=== PATIENT | male | born 1970 | race Caucasian/White ===

== ENCOUNTER 2018-11-17 23:09 | Emergency (ER) | payer SELFPAY ==
--- NOTE | 2018-11-18 01:04 | ER Document Report ---
ED General - General Chief Complaint: Abscess Stated Complaint: Back abscess Time Seen by Provider: 11/18/18 00:15 Notes: Patient is a 48-year-old male without chronic medical problems who presents complaining of a pain with an area of swelling on his left upper mid back. Describes areas having a throbbing, aching, constant pain. Worsened by touching the area. Nothing improves the pain. States that is been present for approximately 1 month and has been worsening over that period of time. Denies a history of similar symptoms in the past. Has not seen his general doctor regarding today's concerns. Denies any fever or constitutional symptoms. TRAVEL OUTSIDE OF THE [place] IN LAST 30 DAYS: No - Related Data Allergies/Adverse Reactions: No Known Allergies Allergy (Unverified 11/17/18 23:21) Past Medical History - General Information source: Patient - Social History Smoking Status: Current Every Day Smoker Frequency of alcohol use: Occasional Drug Abuse: None Family History: Reviewed & Not Pertinent Review of Systems - Review of Systems Notes: Constitutional: Negative for fever. HENT: Negative for sore throat. Eyes: Negative for visual changes. Cardiovascular: Negative for chest pain. Respiratory: Negative for shortness of breath. Gastrointestinal: Negative for abdominal pain, vomiting or diarrhea. Genitourinary: Negative for dysuria. Musculoskeletal: Negative for back pain. Skin: Positive for upper back abscess Neurological: Negative for headaches, weakness or numbness. 10 point ROS negative except as marked above and in HPI. Physical Exam - Vital signs Interpretation: Normal Notes: PHYSICAL EXAMINATION: GENERAL: Well-appearing, well-nourished and in no acute distress. HEAD: Atraumatic, normocephalic. EYES: Pupils equal round and reactive to light, extraocular movements intact, sclera anicteric, conjunctiva are normal. ENT: nares patent, oropharynx clear without exudates. Moist mucous membranes. NECK: Normal range of motion, supple without lymphadenopathy LUNGS: Breath sounds clear to auscultation bilaterally and equal. No wheezes rales or rhonchi. HEART: Regular rate and rhythm without murmurs ABDOMEN: Soft, nontender, normoactive bowel sounds. No guarding, no rebound. No masses appreciated. EXTREMITIES: Normal range of motion, no pitting or edema. No cyanosis. NEUROLOGICAL: No focal neurological deficits. Moves all extremities spontaneously and on command. PSYCH: Seems somewhat intoxicated otherwise pleasant on contact SKIN: Warm, Dry, normal turgor, there is a 2 x 2 centimeter abscess on the left upper mid back with mild surrounding erythema Course - Re-evaluation Re-evalutation: 11/18/18 01:04 Patient presents with an abscess on the right upper back. Patient is intoxicated, quite sleepy on my initial assessment but does wake up relatively easily. Apparently in triage the patient complained of having a "swollen body" but denies this complaint to me. I did nonetheless complete an assessment and there is no apparent edema in any extremity or over the abdomen. Patient's abscess was incised and drained without complication with expression of approximately 5 cc of purulent drainage. There is a mild surrounding area of cellulitis. The patient has been started on trimethoprim sulfamethoxazole 2 tabs twice daily for the next 7 days. Vitals otherwise within normal limits. No indication for labs or imaging. At this time will discharge with return precautions and follow-up recommendations. Verbal discharge instructions given a the bedside and opportunity for questions given. Medication warnings reviewed. Patient is in agreement with this plan and has verbalized understanding of return precautions and the need for primary care follow-up in the next 24-72 hours. Discharge - Discharge Clinical Impression: Abscess of back Condition: Good Disposition: HOME, SELF-CARE Additional Instructions: You were seen for an abscess that required drainage. Please clean this area with soap and water twice daily and apply a topical antibiotic. Dress the area after each cleaning. Please return if you develop fever, vomiting, the pain at the site worsens, you notice spreading redness from the area, or you have any other symptoms that are concerning to you. Prescriptions: Sulfamethoxazole/Trimethoprim [Bactrim Ds Tablet] 2 tab PO BID #28 tablet
[2018-11-18 01:34] VITALS: BP 154/76
== END 2018-11-18 01:32 | disposition home or self-care (01) ==
LOC: ER 23:09
DX: L02.212 Cutaneous abscess of back [any part, except buttock and flank] (principal); L03.312 Cellulitis of back [any part except buttock and flank]; F10.10 Alcohol abuse, uncomplicated; F17.200 Nicotine dependence, unspecified, uncomplicated
CPT/HCPCS: 99283

== ENCOUNTER 2019-02-24 04:56 | Emergency (ER) | payer SELFPAY ==
--- NOTE | 2019-02-24 05:51 | ER Document Report ---
ED General - General Chief Complaint: Flank Pain Stated Complaint: FLANK PAIN Time Seen by Provider: 02/24/19 05:30 Notes: She is a 49-year-old male who presents the emergency department with a complaint of left flank pain. He states that his symptoms started about 5 hours ago. His pain is in his left flank area and it does not radiate. He has had kidney stones before and states that it feels like his previous kidney stone. He has a past medical history of bladder cancer and his cuticular cancer, and has been treated for both of them. Patient denies any other past medical history. States he does not take any medications. Admits to sometimes taking pain medication from his "supplier." TRAVEL OUTSIDE OF THE [place] IN LAST 30 DAYS: No - Related Data Allergies/Adverse Reactions: No Known Allergies Allergy (Unverified 11/17/18 23:21) Past Medical History - General Information source: Patient - Social History Smoking Status: Unknown if Ever Smoked Family History: Reviewed & Not Pertinent Patient has suicidal ideation: No Patient has homicidal ideation: No Renal/ Medical History: Denies: Hx Peritoneal Dialysis Review of Systems - Review of Systems Notes: REVIEW OF SYSTEMS: CONSTITUTIONAL : Denies recent illness. Denies recent unintentional weight loss. Denies fever, chills, or sweats. EENT: Denies eye, ear, throat, or mouth pain, discharge, or symptoms. Denies nasal or sinus congestion. CARDIOVASCULAR: Denies chest pain. RESPIRATORY: Denies shortness of breath, cough, congestion, difficulty breathing, or wheezing. GASTROINTESTINAL: Denies nausea, vomiting, and diarrhea. Denies abdominal pain. Denies constipation. GENITOURINARY: Denies difficulty urinating, burning, blood in urine, urgency or frequency. MUSCULOSKELETAL: See HPI SKIN: Denies rash, itchiness, or lesions HEMATOLOGIC : Denies easy bruising or bleeding. LYMPHATIC: Denies swollen, painful, enlarged glands. NEUROLOGICAL: Denies no numbness or tingling denies weakness. Denies headache. Denies altered mental status. Denies alteration in speech. PSYCHIATRIC: Denies stress, anxiety, alteration in sleep patterns, or depression. All other systems reviewed and negative. Physical Exam - Vital signs Vitals: Temp Pulse Resp BP Pulse Ox 97.6 F 74 18 131/85 H 95 02/24/19 05:08 02/24/19 05:08 02/24/19 05:08 02/24/19 05:08 02/24/19 05:08 - Notes Notes: PHYSICAL EXAMINATION: GENERAL: Appears unkempt, thin, drowsy, no acute distress. HEAD: Normocephalic, atraumatic. EYES: PERRL, conjunctiva normal, all extraocular movements intact, sclera nonicteric ENT: Moist mucous membranes. NECK: Supple, no noticeable swelling, redness, rash. Normal range of motion. LUNGS: Equal breath sounds bilaterally and clear to auscultation. No wheezes rales or rhonchi. CARDIOVASCULAR: S1-S2, regular rate, regular rhythm. Radial pulses 2+, normal. ABDOMEN: Normoactive bowel sounds. Soft, nontender, no guarding, no rebound tenderness, and no masses palpated. EXTREMITIES: Normal strength and range of motion, no pitting or edema. No cyanosis. NEUROLOGICAL: Moves all extremities upon command. Strength 5/5 in all extremities. PSYCH: Normal mood, normal affect. SKIN: Warm, dry. No rash, lesions, ulcerations noted. Normal skin turgor. BACK : CVA tenderness noted to left flank. Course - Re-evaluation Re-evalutation: 02/24/19 05:15 Patient has CVA tenderness noted on physical exam. At this time, I will hold off on a CT of the abdomen and pelvis, as the patient does not have insurance. I do not want to put the patient in financial debt when he most likely has a renal stone. I will order basic labs and urinalysis. If the patient does have leukocytes on his urinalysis, he will be sent for a CT of the abdomen and pelvis. 02/24/19 07:56 Patient's physical exams and labs are consistent with a renal stone. Patient has had renal stones in the past. There are no leukocytes noted on patient's urinalysis, ruling out an infected kidney stone. I have a very low suspicion for an infected kidney stone. He will be started on Flomax and Toradol for his pain. He will not be sent home on narcotic pain medication, as he already abuses narcotics provided by a friend. He is in agreement with this plan. Verbal discharge instructions were given to the patient. They verbalized understanding. They are stable for discharge. - Vital Signs Vital signs: Temp Pulse Resp BP Pulse Ox 98.5 F 74 15 133/78 H 93 02/24/19 08:25 02/24/19 05:08 02/24/19 08:26 02/24/19 08:26 02/24/19 08:26 - Laboratory Result Diagrams: 02/24/19 05:06 02/24/19 05:06 Laboratory results interpreted by me: 02/24/19 02/24/19 02/24/19 05:06 05:06 05:55 RDW 14.1 H Seg Neutrophils % 88.6 H Lymphocytes % 7.0 L Glucose 181 H Urine Protein 100 H Urine Glucose (UA) 50 H Urine Ketones 80 H Urine Blood LARGE H Urine Urobilinogen 2.0 H Discharge - Discharge Clinical Impression: Left flank pain Condition: Stable Disposition: HOME, SELF-CARE Additional Instructions: Kidney Stone You are passing or have passed a kidney stone. These stones are usually due to increased calcium or uric acid concentrations in your urine. Stones within the kidney itself are not painful. The pain occurs as the stone leaves the kidney to pass down the long tube, called the ureter, leading to the bladder. If the stone is small, it will usually pass by itself. Most patients can pass the stone at home. You will usually receive medications for pain, nausea or vomiting, and sometimes a medication to assist in passing the kidney stone. However, if the pain is very severe or if vomiting prevents you from taking oral pain medications, you may need to return for further treatment. Drink three or four quarts of fluids per day. You will be given pain medication (if needed). Return if pain or vomiting become severe, if you develop a high fever, if you are unable to pass your urine, or if other unusual symptoms occur. Prescriptions: Ketorolac Tromethamine [Toradol 10 mg Tablet] 10 mg PO Q6HP PRN #20 tablet PRN Reason: Tamsulosin HCl [Flomax 0.4 mg Cap.sr] 0.4 mg PO DAILY #7 cap.sr.24h
[2019-02-24] MEDS ORDERED: NORMAL SALINE 1000 ML 1,000 ML IV ONE (06:00)
[2019-02-24 06:08] LABS: ABSOLUTE LYMPHOCYTES (AUTO) 0.6 10^3/uL (0.5-4.7); ABSOLUTE MONOCYTES (AUTO) 0.3 10^3/uL (0.1-1.4); ABSOLUTE NEUT (AUTO) 7.6 10^3/uL (1.7-8.2); BASOPHILS % (AUTO) 0.2 % (0-2); EOSINOPHILS % (AUTO) 0.2 % (0-6); HEMATOCRIT 43.7 % (37.9-51.0); HEMOGLOBIN 14.6 g/dL (13.5-17.0); MEAN CORPUSCULAR HEMOGLOBIN 30.3 pg (27.0-33.4); MEAN CORPUSCULAR HGB CONC 33.4 g/dL (32.0-36.0); MEAN CORPUSCULAR VOLUME 91 fl (80-97); PLATELET COUNT 233 10^3/uL (150-450); RED BLOOD COUNT 4.83 10^6/uL (4.35-5.55); RED CELL DISTRIBUTION WIDTH 14.1 % (11.5-14.0); SEGMENTED NEUTROPHILS % (AUTO) 88.6 % (42-78); TOTAL CELLS COUNTED % (AUTO) 100 %; WHITE BLOOD COUNT 8.6 10^3/uL (4.0-10.5)
[2019-02-24 06:38] LABS: ALANINE AMINOTRANSFERASE 25 U/L (21-72); ALBUMIN 3.9 g/dL (3.5-5.0); ALKALINE PHOSPHATASE 70 U/L (38-126); ANION GAP 11 (5-19); ASPARTATE AMINO TRANSFERASE 27 U/L (17-59); BILIRUBIN,DIRECT 0.3 mg/dL (0.0-0.4); BILIRUBIN,TOTAL 0.9 mg/dL (0.2-1.3); BLOOD UREA NITROGEN 17 mg/dL (7-20); CALCIUM 9.6 mg/dL (8.4-10.2); CARBON DIOXIDE 30 mmol/L (22-30); CHLORIDE 100 mmol/L (98-107); GLUCOSE 181 mg/dL (75-110); POTASSIUM 3.8 mmol/L (3.6-5.0); SODIUM 140.6 mmol/L (137-145)
[2019-02-24 06:48] LABS: APPEARANCE,URINE SLIGHTLY-CLOUDY; BILIRUBIN,URINE NEGATIVE (NEGATIVE); COLOR,URINE AMBER; GLUCOSE, URINE 50 mg/dL (NEGATIVE); KETONES,URINE 80 mg/dL (NEGATIVE); LEUKOCYTE ESTERASE,URINE NEGATIVE (NEGATIVE); NITRITE,URINE NEGATIVE (NEGATIVE); PROTEIN,URINE 100 mg/dL (NEGATIVE); URINE SPECIFIC GRAVITY 1.029
[2019-02-24 07:35] LABS: URINE BARBITURATES SCREEN NEGATIVE; URINE BENZODIAZEPINES SCREEN NEGATIVE; URINE COCAINE SCREEN NEGATIVE; URINE MARIJUANA (THC) SCREEN UNCONFIRMED POSITIVE; URINE METHADONE SCREEN NEGATIVE; URINE PHENCYCLIDINE SCREEN NEGATIVE
[2019-02-24] MEDS ORDERED: TAMSULOSIN HCL 0.4 MG CAP.SR.24H PO ONE (08:02)
[2019-02-24] MEDS ORDERED: ONDANSETRON ODT 4 MG TAB (6 TAB/ER DISP) PO PRN (08:04)
[2019-02-24 09:01] VITALS: BP 133/78
== END 2019-02-24 09:11 | disposition home or self-care (01) ==
LOC: ER 04:56
DX: R10.9 Unspecified abdominal pain (principal); Z79.899 Other long term (current) drug therapy
CPT/HCPCS: 99284; 96360; 96361; 36415; 85025; 80053; 81001; 80307; J7030

== ENCOUNTER 2020-05-20 14:19 | Emergency (ER) | payer SELFPAY ==
--- NOTE | 2020-05-20 15:19 | ER Document Report ---
ED Medical Screen (RME) - General Chief Complaint: Flank Pain Stated Complaint: LOW BACK PAIN/DIFFICULTY URINATING Time Seen by Provider: 05/20/20 15:15 Mode of Arrival: Medic Information source: Patient Notes: 50-year-old male presented to ED for bilateral flank pain since last night. He states he did take Percocet this morning he only had 2 left and is already taking them. He states he has not had any urine today. He has vomited more than 5 times today and cannot urinate EMS gave him Toradol 30. Patient is alert and oriented very cold. He states he is in a lot of pain. He states he took 2 Percocet this morning. He was brought in by EMS and said in the lobby to wait for triage. I have greeted and performed a rapid initial assessment of this patient. A comprehensive ED assessment and evaluation of the patient, analysis of test results and completion of medical decision making process will be conducted by an additional ED providers. TRAVEL OUTSIDE OF THE [place] IN LAST 30 DAYS: No - HPI Onset: Other - Has not urinated since last night Onset/Duration: Persistent, Worse Severity: Severe Pain Level: 5 Associated Symptoms: Nausea, Vomiting - 5, Other - Urinary retention Exacerbated by: Movement Relieved by: Denies - Related Data Allergies/Adverse Reactions: No Known Allergies Allergy (Unverified 11/17/18 23:21) Past Medical History Renal/ Medical History: Denies: Hx Peritoneal Dialysis Physical Exam - Vital signs Vitals: Temp Pulse Resp BP Pulse Ox 98.5 F 74 18 136/92 H 99 05/20/20 14:26 05/20/20 14:26 05/20/20 14:05/20/20 14:26 05/20/20 14:26 Course - Vital Signs Vital signs: Temp Pulse Resp BP Pulse Ox 98.5 F 74 18 136/92 H 99 05/20/20 14:26 05/20/20 14:26 05/20/20 14:05/20/20 14:05/20/20 14:26
[2020-05-20 15:47] LABS: ABSOLUTE MONOCYTES (AUTO) 0.4 10^3/uL (0.1-1.4); ABSOLUTE NEUT (AUTO) 9.1 10^3/uL (1.7-8.2); BASOPHILS % (AUTO) 0.4 % (0-2); EOSINOPHILS % (AUTO) 0.1 % (0-6); HEMATOCRIT 47.7 % (37.9-51.0); HEMOGLOBIN 16.2 g/dL (13.5-17.0); LYMPHOCYTES % (AUTO) 9.3 % (13-45); MEAN CORPUSCULAR HEMOGLOBIN 30.5 pg (27.0-33.4); MEAN CORPUSCULAR VOLUME 90 fl (80-97); MONOCYTES % (AUTO) 3.9 % (3-13); PLATELET COUNT 266 10^3/uL (150-450); RED BLOOD COUNT 5.31 10^6/uL (4.35-5.55); SEGMENTED NEUTROPHILS % (AUTO) 86.3 % (42-78); TOTAL CELLS COUNTED % (AUTO) 100 %; WHITE BLOOD COUNT 10.6 10^3/uL (4.0-10.5)
[2020-05-20] MEDS ORDERED: RINGERS SOLUTION,LACTATED 1,000 ML IV ONE (15:54)
[2020-05-20] MEDS ORDERED: MORPHINE SULFATE 10 MG/ML INJ IV ONE (15:54)
[2020-05-20] MEDS ORDERED: ONDANSETRON HCL INJ/PF 4 MG/2 ML SDV IV ONE (15:57)
[2020-05-20 16:00] LABS: AMORPHOUS SEDIMENT,URINE TRACE /HPF; APPEARANCE,URINE CLOUDY; BILIRUBIN,URINE NEGATIVE (NEGATIVE); COLOR,URINE AMBER; GLUCOSE, URINE NEGATIVE (NEGATIVE); KETONES,URINE TRACE mg/dL (NEGATIVE); LEUKOCYTE ESTERASE,URINE TRACE (NEGATIVE); NITRITE,URINE NEGATIVE (NEGATIVE); PROTEIN,URINE 100 mg/dL (NEGATIVE); UROBILINOGEN,URINE NEGATIVE mg/dL (<2.0)
--- NOTE | 2020-05-20 16:02 | ER Document Report ---
ED General - General Chief Complaint: Flank Pain Stated Complaint: LOW BACK PAIN/DIFFICULTY URINATING Time Seen by Provider: 05/20/20 15:15 Mode of Arrival: Medic TRAVEL OUTSIDE OF THE [place] IN LAST 30 DAYS: No - HPI Notes: 50-year-old male presents with bilateral flank pain. Patient states onset of pain last night and worsened this morning. He states that it feels like kidney stones. He states that he last had kidney stones 1/2 to 2 years ago, he did not require any intervention and passed stones on his own. States the pain is constant and sharp, does not radiate. He states that he was not able to pee this morning secondary to pain, he reports he is able to urinate now. He denies any penile discharge. He did not see any blood in his urine. He took 2 Percocet at home which did not relieve the pain. He received 30 mg Toradol via EMS. - Related Data Allergies/Adverse Reactions: No Known Allergies Allergy (Verified 05/20/20 15:18) Home Medications: denies Past Medical History - General Information source: Patient - Social History Smoking Status: Current Every Day Smoker Chew tobacco use (# tins/day): No Frequency of alcohol use: None Drug Abuse: None Family History: Reviewed & Not Pertinent Patient has homicidal ideation: No Renal/ Medical History: Denies: Hx Peritoneal Dialysis Review of Systems - Review of Systems Constitutional: Chills EENT: No symptoms reported Cardiovascular: No symptoms reported Respiratory: No symptoms reported Gastrointestinal: Nausea, Vomiting Genitourinary: Dysuria, Flank pain Male Genitourinary: denies: Penile discharge Musculoskeletal: No symptoms reported Skin: No symptoms reported Hematologic/Lymphatic: No symptoms reported Neurological/Psychological: No symptoms reported Physical Exam - Vital signs Vitals: Temp Pulse Resp BP Pulse Ox 98.5 F 74 18 136/92 H 99 05/20/20 14:26 05/20/20 14:26 05/20/20 14:26 05/20/20 14:26 05/20/20 14:26 Interpretation: No: Hypotensive, Febrile - General General appearance: Appears well In distress: None - HEENT Head: Normocephalic Eyes: Normal Pupils: PERRL - Respiratory Breath sounds: Normal - Cardiovascular Rhythm: Regular Heart sounds: Normal auscultation - Abdominal Distension: No distension Bowel sounds: Normal Tenderness: Tender - Mild bilateral flanks, right greater than left. No: Guarding, Rebound - Genitourinary Notes: Vora in place draining clear urine - Back Back: Nontender - Extremities General upper extremity: Normal inspection General lower extremity: Normal inspection - Neurological Neuro grossly intact: Yes Cognition: Normal Orientation: AAOx4 - Psychological Associated symptoms: Normal affect - Skin Skin Temperature: Warm Course - Re-evaluation Re-evalutation: 05/20/20 16:01 50-year-old male with history of kidney stones presenting with bilateral flank pain and painful urination. He is nontoxic-appearing, afebrile and vitals are stable. He does have some mild Hild flank tenderness. He received a Vora during the triage process, it is draining clear urine. He has been to CT and has had labs drawn. CT images reviewed, awaiting final read. Will treat symptoms with morphine, fluids and Zofran. Reassess. 05/20/20 16:10 CT has resulted, it does not demonstrate stone or other abdominal pathology 05/20/20 18:46 No significant leukocytosis. No anemia. Lites okay. Creatinine within normal limits. Urine not overtly suggestive of UTI, possible he may have passed a stone. Into update patient on results, overall reassuring. Will have Vora removed at this time. 05/20/20 19:54 Vora has been removed. Into reassess patient, he appears improved. I rediscussed his work-up here today, which is overall reassuring, potentially he may have passed a stone. I encouraged him to please establish care with a PCP, resources will be provided. We discussed return precautions. He was discharged in stable condition. - Vital Signs Vital signs: Temp Pulse Resp BP Pulse Ox 98.5 F 74 18 136/92 H 99 05/20/20 14:26 05/20/20 14:26 05/20/20 14:26 05/20/20 14:26 05/20/20 14:26 - Laboratory Result Diagrams: 05/20/20 15:35 05/20/20 15:35 Laboratory results interpreted by me: 05/20/20 05/20/20 05/20/20 15:35 15:35 15:35 WBC 10.6 H Lymph % (Auto) 9.3 L Absolute Neuts (auto) 9.1 H Seg Neutrophils % 86.3 H Sodium 136.0 L Chloride 96 L BUN 26 H Glucose 156 H Calcium 10.4 H Creatine Kinase 50 L Total Protein 8.8 H Albumin 5.2 H Lipase 21.4 L Urine Protein 100 H Urine Ketones TRACE H Ur Leukocyte Esterase TRACE H Urine Ascorbic Acid 20 H - Diagnostic Test Radiology reviewed: Image reviewed, Reports reviewed Discharge - Discharge Clinical Impression: Bilateral flank pain Condition: Stable Disposition: HOME, SELF-CARE Additional Instructions: Please establish with a primary care physician. Be sure to drink plenty of fluids. Can continue ibuprofen or Tylenol for pain at home. Please return the ED for any worsening or concerning symptoms. Referrals: OFE ABEL MD [COMMUNITY BASED STAFF] - Follow up as needed
--- NOTE | 2020-05-20 16:05 | RADIOLOGY REPORT (SQ) ---
EXAM DESCRIPTION: CT ABD/PELVIS NO ORAL OR IV IMAGES COMPLETED DATE/TIME: 05/20/2020 3:49 pm REASON FOR STUDY: History of kidney stones bilateral flank pain urin COMPARISON: None. TECHNIQUE: CT scan of the abdomen and pelvis performed without intravenous or oral contrast. Images reviewed with lung, soft tissue, and bone windows. Reconstructed coronal and sagittal MPR images revi ewed. All images stored on PACS. All CT scanners at this facility use dose modulation, iterative reconstruction, and/or weight based d osing when appropriate to reduce radiation dose to as low as reasonably achievable (ALARA). [facility]: Dose Right [facility]: CareDose [facility]: Dose Right [facility]: Teradose 4D [facility]: Metrasens RADIATION DOSE: CT Rad equipment meets quality standard of care and radiation dose reduction techniq ues were employed. CTDIvol: 4.8 mGy. DLP: 248 mGy-cm.mGy. LIMITATIONS: Motion. FINDINGS: LOWER CHEST: No significant findings. No nodules or infiltrates. NON-CONTRASTED LIVER, SPLEEN, ADRENALS: Evaluation limited by lack of IV contrast. No identified sign ificant masses. PANCREAS: No masses. No peripancreatic inflammatory changes. GALLBLADDER: No identified stones by CT criteria. No inflammatory changes to suggest cholecystitis. RIGHT KIDNEY AND URETER: No suspicious masses. Assessment limited by lack of IV contrast. No signif icant calcifications. No hydronephrosis or hydroureter. LEFT KIDNEY AND URETER: No suspicious masses. Assessment limited by lack of IV contrast. No signifi cant calcifications. No hydronephrosis or hydroureter. AORTA AND RETROPERITONEUM: No aneurysm. No retroperitoneal masses or adenopathy. BOWEL AND PERITONEAL CAVITY: No obvious masses or inflammatory changes. No free fluid. APPENDIX: Not visualized. PELVIS, BLADDER, AND ABDOMINAL WALL:Vora catheter in urinary bladder. No pelvic adenopathy or free fluid. BONES: No significant findings. OTHER: No other significant finding. IMPRESSION: NO SIGNIFICANT OR ACUTE PROCESS IN THE ABDOMEN OR PELVIS. COMMENT: Quality ID # [id number]: Final reports with documentation of one or more dose reduction techniques (e.g., Automated exposure control, adjustment of the mA and/or kV according to patient size, use of iterative reconstruction technique) TECHNICAL DOCUMENTATION: JOB ID: [id number] 2010 [employer]- All Rights Reserved Reading location - IP/workstation name: [facility]
[2020-05-20 16:07] LABS: ALBUMIN 5.2 g/dL (3.5-5.0); ALKALINE PHOSPHATASE 69 U/L (38-126); ANION GAP 11 (5-19); ASPARTATE AMINO TRANSFERASE 28 U/L (17-59); BILIRUBIN,TOTAL 0.8 mg/dL (0.2-1.3); BLOOD UREA NITROGEN 26 mg/dL (7-20); CALCIUM 10.4 mg/dL (8.4-10.2); CARBON DIOXIDE 29 mmol/L (22-30); CHLORIDE 96 mmol/L (98-107); CREATINE KINASE 50 U/L (55-170); GLUCOSE 156 mg/dL (75-110); POTASSIUM 4.7 mmol/L (3.6-5.0); TOTAL PROTEIN 8.8 g/dL (6.3-8.2)
[2020-05-20] MEDS ORDERED: HYDROCODONE/ACETAMINOPHEN 5-325 MG TABLET PO ONE (18:45)
[2020-05-20] MEDS ORDERED: ONDANSETRON 4 MG TAB.RAPDIS PO ONE (19:53)
[2020-05-20 20:30] VITALS: BP 138/72
== END 2020-05-20 20:29 | disposition home or self-care (01) ==
LOC: ER 14:19
DX: R10.9 Unspecified abdominal pain (principal); R68.83 Chills (without fever); R30.0 Dysuria; F17.200 Nicotine dependence, unspecified, uncomplicated; Z87.442 Personal history of urinary calculi
CPT/HCPCS: 99284; 51702; 96374; 96375; 36415; 87086; 82550; 83690; 85025; 80053; 81001; 74176; S0119; J2270; J2405; J7120